=== PATIENT | female | born 1990 | race Caucasian/White ===

== ENCOUNTER 2017-04-10 10:25 | Emergency (ER) | payer MEDICAID ==
[~2017-04-10] VITALS: Wt 97.0 kg
[~2017-04-10 10:25] MED LIST: CALC-649 PO; IBUP800T25 PO; PHEN177S43 MT; PREN1TAB49 PO
[2017-04-10] MEDS ORDERED: ACETAMINOPHEN 500 MG TAB PO STA (11:40)
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
[2017-04-10 12:22] LABS: CALCIUM 9.6 mg/dl (8.4-10.2); CREATININE 0.68 mg/dl (0.44-1.00); POTASSIUM 4.2 mmol/L (3.5-5.1)
[2017-04-10] MEDS ORDERED: SOD CHLORIDE 0.9% 100 ML ONE (12:54)
[2017-04-10] MEDS ORDERED: IOHEXOL 300MG/ML 150 ML BTL ONE (12:54)
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
[2017-04-10] MEDS ORDERED: IBUP800T25 PO (13:18)
[2017-04-10 13:38] VITALS: BP 110/60; PULSE 75; RESP 18; TEMP 98.2
== END 2017-04-10 13:38 | disposition home or self-care (01) ==
LOC: FTE 10:25
DX: R10.84 Generalized abdominal pain (principal)
CPT/HCPCS: 36415; 74177; 80048; 84703; Q9967; Z7502; Z7610

== ENCOUNTER 2017-07-15 15:14 | Emergency (ER) | END 2017-07-15 19:45 | disposition home or self-care (01) ==